=== PATIENT | male | born 1940 | race Caucasian/White ===

== ENCOUNTER 2019-01-04 06:24 | Emergency (ER) | payer MEDICARE, OTHER, SELFPAY ==
[2019-01-04 06:27] VITALS: BP 195/89; PULSE 77; RESP 18; TEMP 36.6; O2SAT 97
--- NOTE | 2019-01-04 06:41 | ED.MALEGU ---
HPI - Male Genitourinary General Chief complaint: Urogenital-Male Stated complaint: Cant urinate Time Seen by Provider: 01/04/19 06:25 Source: patient Mode of arrival: ambulatory Limitations: no limitations History of Present Illness HPI Narrative: 78-year-old male nonsmoker with history of BPH presents with inability to urinate since yesterday. He has worsening suprapubic pain and history of urinary retention years ago. He denies dizziness, weakness or lightheadedness. He denies dysuria, frequency or urgency. He has no chest pain, shortness of breath or back pain MD Complaint: other Onset (ago): hour(s) Duration: constant Severity: moderate Quality: aching Exacerbating factors: none Associated symptoms: Reports denies other symptoms Related Data Home Medications Medication Instructions Recorded Confirmed ACETAMINOPHEN (TYLENOL ARTHRITIS) 650 mg PO PRN #0 02/01/12 CALCIUM CARBONATE (TUMS ) 500 mg PO PRN #0 02/01/12 Allergies Allergy/AdvReac Type Severity Reaction Status Date / Time penicillin G [PENICILLIN G] Allergy Severe ANAPHYLAXIS Unverified 08/08/17 12:22 venom-honey bee Allergy Unknown Unverified 08/08/17 12:22 [BEE VENOM (HONEY BEE)] Review of Systems Constitutional Constitutional: Denies chills, Denies fatigue, Denies fever(s), Denies frequent falls, Denies lethargy and Denies weakness Eyes Eyes: Denies change in vision, Denies eye discharge, Denies irritation and Denies loss of vision ENT Ears, Nose, Mouth, and Throat: Denies change in voice, Denies dizziness, Denies neck pain, Denies sore throat and Denies throat swelling Cardiovascular Cardiovascular: Denies chest pain, Denies irregular heart rhythm, Denies lightheadedness, Denies palpitations, Denies dyspnea, Denies dyspnea on exertion and Denies orthopnea Respiratory Respiratory: Denies cough, Denies dyspnea, Denies dyspnea on exertion and Denies wheezing Gastrointestinal Gastrointestinal: Denies abdominal pain, Denies change in bowel habits, Denies diarrhea, Denies nausea and Denies vomiting Genitourinary Genitourinary: Denies hematuria, Reports difficulty urinating, Denies flank pain, Denies urinary incontinence and Denies urinary urgency Musculoskeletal Musculoskeletal: Denies back pain, Denies muscle weakness, Denies neck pain, Denies numbness and Denies tingling Integumentary/Breasts Skin/Breast: Denies pruritus, Denies erythema, Denies rash and Denies wounds Neurologic Neurologic: Denies behavioral changes, Denies confusion, Denies dizziness, Denies frequent falls, Denies loss of vision, Denies numbness, Denies tingling and Denies weakness Psychiatric Psychiatric: Denies anxiety, Denies behavioral changes, Denies confusion, Denies depression, Denies homicidal ideation and Denies suicidal ideation Endocrine Endocrine: Denies fatigue, Denies flushing and Denies palpitations Hematologic/Lymphatic Hematologic/Lymphatic: Denies easy bruising Allergic/Immunologic Allergic/Immunologic: Denies urticaria, Denies throat swelling and Denies wheezing Exam Narrative Exam Narrative: GEN: AOx3 and in mild distress EYES: Pupils are equal, round, and reactive to light and accommodation. Extraoccular muscles are intact bilaterally. There is no subconjunctival hemorrhage or exudate. CHEST: Lungs are clear to auscultation bilaterally and free of wheezes, rales, or rhonchi. Heart rate is regular rhythm, there are no murmurs, clicks, rubs, or gallops. There is no chest wall tenderness. ABD: Abdomen is soft and tender in the suprapubic region. There is no guarding or rebound. Bowel sounds are normal in all 4 quadrants. There is no mass or organomegaly. EXT: Full painless ROM of all extremities with no loss of sensation or strength. SKIN: Warm, pink, and dry. No erythema or rash Initial Vital Signs Initial Vital Signs: Vital Signs Temperature 97.8 F 01/04/19 06:27 Pulse Rate 77 01/04/19 06:27 Respiratory Rate 18 01/04/19 06:27 Blood Pressure 195/89 H 01/04/19 06:27 Pulse Oximetry 97 01/04/19 06:27 Course Course Course Narrative: Patient had a Coffey catheter placed and over a L came out, patient had a complete resolution of symptoms. Vital Signs Vital signs: Vital Signs - 8 hr 01/04/19 06:27 Temperature 97.8 F Pulse Rate 77 Respiratory Rate 18 Blood Pressure 195/89 H Pulse Oximetry 97 MDM - Male Genitourinary Lab Data Labs: Urine Dip Bedside Urine Glucose Negative Bedside Urine Bilirubin - Negative Bedside Urine Ketone - Negative Urine Specific [place] 1.015 Bedside Urine Occult Blood +++ Bedside Urine pH 6 Bedside Urine Protein - Negative Bedside Urine Urobilinogen - Negative Bedside Urine Nitrite - Negative Bedside Urine Leukocytes - Negative Esterase Discharge Plan Departure Patient Disposition: Home Clinical Impression: Urinary retention Instructions: DI for Urinary Retention in Men Activity Restrictions/Additional Instructions: *You have been diagnosed with [acute urinary retention] *What to do: * continue to take medications as directed *Follow up with yoururologist in 2-3 days, call for an appointment. Let them know you were seen in the Emergency Department and that we ask that you be seen in follow up *Return to ER if you should have any new, worsening or concerning symptoms Prescriptions: No Action ACETAMINOPHEN (TYLENOL ARTHRITIS) 650 mg PO PRN Qty: 0 RF: 0 CALCIUM CARBONATE (TUMS ) 500 mg PO PRN Qty: 0 RF: 0 Referrals: Abdias Turcios DO [Non-Staff] - Edward Gutierrez MD [Primary Care Provider] -
[2019-01-04 07:10] VITALS: BP 140/81; PULSE 71; RESP 18; O2SAT 95
== END 2019-01-04 07:10 | disposition home or self-care (01) ==
PROVIDERS: Emergency Provider Emergency Medicine; PCP Family Medicine
DX: R33.9 Retention of urine, unspecified (principal)
CPT/HCPCS: 51701; 81003; 99283

== ENCOUNTER 2019-01-22 03:51 | Emergency (ER) | payer MEDICARE, OTHER, SELFPAY ==
[2019-01-22 03:52] VITALS: BP 170/84; PULSE 70; RESP 16; TEMP 36.6; O2SAT 95; BMI 33.0
--- NOTE | 2019-01-22 04:18 | ED_ITS ---
HPI - Male Genitourinary General Chief complaint: Urogenital-Male Stated complaint: UNABLE TO URINATE Time Seen by Provider: 01/22/19 03:57 Source: patient Mode of arrival: Ambulatory Limitations: no limitations History of Present Illness HPI Narrative: The patient has BPH. He was seen here earlier in the month due to urinary retention, Coffey was placed. He takes Flomax with BPH. The Coffey was removed by his urologist. The Coffey has been out several days. He has done well until tonight. His last normal urine output was several hours ago. He cannot urinate now. He is having increased lower abdominal pain. He has had no nausea vomiting. He has no testicular pain, and no dysuria. He has had no fever. Related Data Home Medications Medication Instructions Recorded Confirmed ACETAMINOPHEN (TYLENOL ARTHRITIS) 650 mg PO PRN #0 02/01/12 CALCIUM CARBONATE (TUMS ) 500 mg PO PRN #0 02/01/12 Previous Rx's Medication Instructions Recorded sulfamethoxazole-trimethoprim 1 tab PO BID 10 Days #20 tab 01/22/19 Allergies Allergy/AdvReac Type Severity Reaction Status Date / Time penicillin G [PENICILLIN G] Allergy Severe ANAPHYLAXIS Verified 01/22/19 05:18 venom-honey bee Allergy Unknown Verified 01/22/19 05:18 [BEE VENOM (HONEY BEE)] Review of Systems Review of Systems ROS Unobtainable: All systems reviewed & are unremarkable except as noted in HPI and below Constitutional Constitutional: Denies chills, Denies fever(s) and Denies malaise ENT Ears, Nose, Mouth, and Throat: Denies dizziness Cardiovascular Cardiovascular: Denies chest pain, Denies lightheadedness, Denies palpitations and Denies dyspnea Respiratory Respiratory: Denies cough, Denies dyspnea and Denies wheezing Gastrointestinal Gastrointestinal: Reports abdominal pain (Suprapubic discomfort), Denies diarrhea, Denies nausea and Denies vomiting Genitourinary Genitourinary: Denies genital pain, Denies dysuria, Denies testicular pain and Reports urinary hesitancy Musculoskeletal Musculoskeletal: Denies back pain, Denies muscle weakness, Denies numbness and Denies tingling Integumentary/Breasts Skin/Breast: Denies erythema, Denies rash and Denies wounds Neurologic Neurologic: Denies dizziness, Denies numbness and Denies tingling Endocrine Endocrine: Denies palpitations Allergic/Immunologic Allergic/Immunologic: Denies wheezing [facility] Medical History (Updated 01/22/19 @ 05:12 by Malik Scott MD) BPH (benign prostatic hyperplasia) (Acute) Social History Smoking Status: Never smoker Social History Smoking Status: Never smoker Exam Initial Vital Signs Initial Vital Signs: Vital Signs Temperature 97.9 F 01/22/19 03:52 Pulse Rate 70 01/22/19 03:52 Respiratory Rate 16 01/22/19 03:52 Blood Pressure 170/84 H 01/22/19 03:52 Pulse Oximetry 95 01/22/19 03:52 Const General: cooperative and well developed Nutritional Appearance: well nourished Orientation: alert, awake, oriented x3 and not confused Resp Effort & Inspection: normal respiratory effort and able to speak in complete sentences Auscultation: clear to auscultation bilaterally, no rales, no rhonchi and no wheezes Cardio Rate: regular rate Rhythm: regular rhythm Heart Sounds: S1 normal, S2 normal, no click, no gallops, no murmurs and no rubs Pulses: normal peripheral pulses GI Inspection: non-distended Palpation: soft, no hepatosplenomegaly, No guarding, No pulsatile mass and tender Auscultation: normal bowel sounds Skin General: no rashes or lesions noted, No jaundice and No petechiae Neuro General: alert, oriented x3, gait normal and no focal motor deficits Course Course Course Narrative: The patient has urinary retention. On the bladder scan, he had 600 mL of urine. A Coffey was placed. His pressure has been relieved. Orders Ordered: ED Orders 01/22/19 04:20 Urine Culture Stat Urine Microscopic Stat Discontinued Medications Trimethoprim/Sulfamethoxazole (Bactrim Ds) 1 tab PO NOW ONE Stop: 01/22/19 05:11 Last Admin: 01/22/19 05:18 Dose: 1 tab Documented by: FARNAZ Vital Signs Vital signs: Vital Signs - 8 hr 01/22/19 03:52 01/22/19 05:38 Temperature 97.9 F Pulse Rate 70 67 Respiratory Rate 16 16 Blood Pressure 170/84 H 121/80 Pulse Oximetry 95 97 MDM - Male Genitourinary Lab Data Labs: Lab Results 01/22/19 Range/Units 04:20 Urine RBC 30-100/hpf H (0-5/HPF) Urine WBC 30-100/hpf H (0-5/HPF) Ur Squamous Epith Cells 0-1 /hpf (0-5/HPF) Urine Bacteria Many (>30) H (None) Ur Culture Indicated? Specimen cultured Urine Dip Bedside Urine Glucose Negative Bedside Urine Bilirubin - Negative Bedside Urine Ketone - Negative Urine Specific [place] 1.015 Bedside Urine Occult Blood +++ Bedside Urine pH 6.0 Bedside Urine Protein - Negative Bedside Urine Urobilinogen - Negative Bedside Urine Nitrite + Positive Bedside Urine Leukocytes ++ 125 Esterase Discharge Plan Departure Patient Disposition: Home Clinical Impression: Urinary retention BPH (benign prostatic hyperplasia) Qualifiers: Lower urinary tract symptom presence: symptoms present Lower urinary tract symptom detail: urinary retention Qualified Code(s): N40.1 - Benign prostatic hyperplasia with lower urinary tract symptoms Urinary tract infection Qualifiers: Urinary tract infection type: acute cystitis Hematuria presence: with hematuria Qualified Code(s): N30.01 - Acute cystitis with hematuria Discharge Date/Time: 01/22/19 05:38 Instructions: DI for Urinary Tract Infection (UTI), DI for Urinary Retention in Men Activity Restrictions/Additional Instructions: Drink plenty of water, stay well hydrated. Septra DS 2x daily for 10 days. Follow-up with her urologist, call for appointment. Return here as necessary. Prescriptions: New sulfamethoxazole-trimethoprim 800-160 mg tablet 1 tab PO BID 10 Days Qty: 20 RF: 0 No Action ACETAMINOPHEN (TYLENOL ARTHRITIS) 650 mg PO PRN Qty: 0 RF: 0 CALCIUM CARBONATE (TUMS ) 500 mg PO PRN Qty: 0 RF: 0 Referrals: Edward Gutierrez MD [Primary Care Provider] -
--- NOTE | 2019-01-22 04:22 | PC.NURSE ---
Pt states unable to urinate. States pain in lower abdomen from full bladder.
[2019-01-22 05:01] LABS: Bacteria Urine Many (>30); Culture Indicated Urine Specimen Cultured; RBC Urine 30-100/HPF (0-5/HPF); Squamous Epithelial Cell Urine 0-1 /HPF (0-5/HPF); WBC Urine 30-100/HPF (0-5/HPF)
[2019-01-22] MEDS: TRIMETH/SULFA 160/800 (DS) TABLET 1 TAB PO (05:18)
[2019-01-22 05:38] VITALS: BP 121/80; PULSE 67; RESP 16; O2SAT 97
== END 2019-01-22 05:38 | disposition home or self-care (01) ==
PROVIDERS: Emergency Provider Emergency Medicine; Family Provider Urology; PCP Family Medicine
DX: R33.9 Retention of urine, unspecified (principal); N40.1 Benign prostatic hyperplasia with lower urinary tract symptoms; N30.01 Acute cystitis with hematuria
CPT/HCPCS: 51701; 51798; 81003; 81015; 87077; 87086; 87186; 99283